=== PATIENT | female | born 1990 | race Caucasian/White ===

== ENCOUNTER 2016-09-28 10:46 | Inpatient (IN) | payer MEDICAID ==
[2016-09-28] MEDS ORDERED: BUTORPHANOL TARTRATE 2 MG/ML VIAL IV PRN (11:54)
[2016-09-28] MEDS ORDERED: LIDOCAINE HCL 50 ML VIAL PERI PRN (11:54)
[2016-09-28] MEDS ORDERED: RINGER'S SOLUTION,LACTATED 1,000 ML IV ONE (11:54)
[2016-09-28] MEDS ORDERED: OXYTOCIN/DEXTROSE 5%-WATER 30 UNITS/500 ML BAG IV ONE (11:54)
--- NOTE | 2016-09-28 16:28 | PN ---
Progess Note - Interim Narrative: 09/28/16 16:26 : /-2, AROM-cear FHTs: 140's, mod anibal, no decels, +accels [place]: q3min
[2016-09-28] MEDS ORDERED: NALOXONE HCL 1 MG/1 ML SYRG IV PRN ×2 (21:09→21:41)
[2016-09-28] MEDS ORDERED: ONDANSETRON HCL/PF 2 MG/ML VIAL IV PRN ×2 (21:09→21:41)
[2016-09-28] MEDS ORDERED: fentaNYL CITRATE/PF 50 MCG/ML AMPUL IT SCH (21:15)
[2016-09-28] MEDS ORDERED: BUPIVACAINE HCL/0.9 % NACL/PF 250 ML EP PRN (21:41)
--- NOTE | 2016-09-28 22:21 | OR ---
Anesthesia Procedure Note - Anesthesia Procedure Note Narrative: Vital Signs - Last Taken Temp 36.6 C 09/28/16 21:54 Pulse 86 09/28/16 21:54 Resp 18 09/28/16 21:54 BP 116/63 09/28/16 21:54 Pulse Ox 98 09/28/16 21:54 09/28/16 22:20 ANESTHESIA PROCEDURE NOTE Date of Procedure: 09/28/2016 Time of procedure: 2204. Performed by: Alan Heller CRNA Graphic Art Designer: None. Preprocedure diagnosis: Active labor. Post procedure diagnosis: Same. Procedure: Insertion of labor epidural. Indications: The patient is a 26 -year-old multigravida female in active labor requesting labor epidural for pain management. Findings: See below. Details of the procedure: The patient was placed in a sitting position. Back was prepped with DuraPrep. Patient was then draped in a sterile fashion. Lidocaine 1% was infiltrated to the skin and subcutaneous tissues at the level of the L3 4 interspace. The epidural space was identified using a 18-gauge Tuohy needle with [id number] technique. 20 mcg fentanyl was given intrathecally using a 27 ga. spinal needle. Epidural catheter was inserted without difficulty. Negative test dose was elicited using 5 mL of 1.5% preservative-free lidocaine plus epinephrine 1 200,000. The epidural catheter was then taped and secured in place. EBL: Minimal. Fluids: N/A. Specimen: N/A. Post procedure condition: The patient tolerated the procedure well. No complications were noted. Thank you for this consultation. Lawson CRNA
[2016-09-28] MEDS ORDERED: DEXTROSE 5%-LACTATED RINGERS 1,000 ML IV PRN (22:38)
[2016-09-29] MEDS ORDERED: SENNOSIDES 8.6 MG TABLET PO PRN (00:11)
[2016-09-29] MEDS ORDERED: OXYTOCIN/DEXTROSE 5%-WATER 30 UNITS/500 ML BAG IV ONE (00:11)
[2016-09-29] MEDS ORDERED: oxyCODONE HCL/ACETAMINOPHEN 1 TAB TABLET PO PRN (00:11)
[2016-09-29] MEDS ORDERED: BENZOCAINE/MENTHOL 81 SPRAY CAN TP PRN (00:11)
[2016-09-29] MEDS ORDERED: BISACODYL 10 MG SUPP.RECT RC PRN (00:11)
[2016-09-29] MEDS ORDERED: HYDROCORTISONE 30 APPL TUBE TP PRN (00:11)
--- NOTE | 2016-09-29 00:13 | OR ---
Operative Report - Dictated Report Narrative: Spontaneous Vaginal Delivery Viable female with APGARS of 9 and 9. Delivered at 2345. Presentation was ANN-MARIE. After delivery of the head a double nuchal cord was noted and reduced and posterior hand presented and was delivered prior to the right anterior shoulder. The baby delivered easily and placed on maternal abdomen and spontaneous cry was noted. Per patient request the cord was clamped after it stopped pulsating after approximately 2 minutes. Weight: 7 pounds 1.5 ounces or 3218 g Placenta was delivered spontaneously and intact. First-degree right vaginal laceration that was repaired with 3-0 Vicryl and a first-degree left vaginal that was hemostatic without repair. Estimated blood loss: 200 ml Mother and baby tolerated delivery well. History for Definition: * The number of deliveries resulting in a live the patient experienced prior to current hospitalization * The previous delivery of live twins or any live multiple gestation is considered one live event. *If primagravida or nulliparous is documented select zero for the number of previous live births. Live Events: 2
[2016-09-29] MEDS: IBUPROFEN 800 MG TABLET PO PRN ×3 (07:07→19:14)
[2016-09-29] MEDS: oxyCODONE HCL/ACETAMINOPHEN 1 TAB TABLET PO PRN ×4 (07:07→22:24)
[2016-09-29] MEDS: GLYCERIN/WITCH HAZEL LEAF 40 APPL BOX TP PRN (07:26)
[2016-09-29] MEDS: DOCUSATE SODIUM 100 MG CAPSULE PO SCH ×2 (10:20→20:54)
[2016-09-29 12:18] LABS: Hematocrit 27.8 % (37.0-47.0); Hemoglobin 8.8 gm/dL (12.5-16.0); Mean Cell Volume 80.3 fl (78-100); Mean Corpuscular Hemoglobin 25.4 pg (27-31); Mean Corpuscular Hgb Conc 31.7 g/dl (32-36); Mean Platelet Volume 10.2 fl (6.0-9.5); Neutrophil # 10.6 K/mm3 (1.3-6.0); Neutrophil % 79.4 % (42-75.0); Platelet Count 161 K/mm3 (150-450); Red Blood Count 3.46 M/mm3 (4.2-5.4); Red Cell Distribution Width 13.8 % (11.5-14.0); White Blood Count 13.3 K/mm3 (4.0-10.5)
--- NOTE | 2016-09-29 14:52 | PN ---
Subjective - Date and Time Seen Date: 09/29/16 Subjective Narrative: day 1, s/p . Was having some dizziness after taking percocet. Vaginal bleeding was normal, not excessive. CBC ordered and now showed anemia with hgb of 8.8. Previously was at 10.9 around 28 week. . Ambulating well. Objective - Vitals Vitals: Last Vital Signs Temp 36.5 C 09/29/16 07:36 Pulse 110 H 09/29/16 12:19 Resp 20 09/29/16 07:36 BP 102/60 09/29/16 07:36 Pulse Ox 99 09/29/16 07:36 - Abnormal Lab Findings Abnormal Lab Findings: Abnormal Lab Results 09/29/16 Range/Units 12:15 WBC 13.3 H (4.0-10.5) K/mm3 RBC 3.46 L (4.2-5.4) M/mm3 Hgb 8.8 L (12.5-16.0) gm/dL Hct 27.8 L (37.0-47.0) % MCH 25.4 L (27-31) pg MCHC 31.7 L (32-36) g/dl MPV 10.2 H (6.0-9.5) fl Immature Gran % (Auto) 1.10 H (0.001-0.429) % Immature Gran # (Auto) 0.15 H (0.000-0.0310) K/mm3 Neutrophils % 79.4 H (42-75.0) % Lymphocytes % 12.8 L (20-51) % Neutrophils # 10.6 H (1.3-6.0) K/mm3 - Exam Constitutional: Present: Alert, Oriented x3, Cooperative Respiratory: Present: no respiratory distress Cardiovascular/Chest: Present: normal peripheral pulses Abdomen: Present: soft, nontender, nondistended, other - fundus firm at umbilicus Extremity: Present: normal range of motion, no pedal edema, no calf tenderness Skin Exam: Present: normal color, warm/dry, no cyanosis Eye contact: Present: cooperative, good eye contact, normal speech Assessment/Plan Plan Narrative: A: day 1, s/p with anemia without excessive bleeding, stable. Plan: routine care. iron bid. ambulation encouraged. Fabian Emanuel MD
[2016-09-29] MEDS: FERROUS SULFATE 325 MG TABLET PO SCH (16:38)
[2016-09-30] MEDS: GLYCERIN/WITCH HAZEL LEAF 40 APPL BOX TP PRN (02:44)
[2016-09-30] MEDS: IBUPROFEN 800 MG TABLET PO PRN ×2 (02:44→08:55)
[2016-09-30] MEDS: oxyCODONE HCL/ACETAMINOPHEN 1 TAB TABLET PO PRN (06:56)
[2016-09-30 08:48] VITALS: BP 117/76
[2016-09-30] MEDS: DOCUSATE SODIUM 100 MG CAPSULE PO SCH (08:58)
--- NOTE | 2016-09-30 10:14 | PN ---
Subjective - Date and Time Seen Date: 09/30/16 Subjective Narrative: day 2, s/p doing well today. no dizziness or short of breath. . normal lochia. Objective - Vitals Vitals: Last Vital Signs Temp 36.7 C 09/30/16 08:36 Pulse 78 09/30/16 08:36 Resp 20 09/30/16 08:36 BP 117/76 09/30/16 08:36 Pulse Ox 99 09/30/16 08:36 - Abnormal Lab Findings Abnormal Lab Findings: Abnormal Lab Results 09/29/16 Range/Units 12:15 WBC 13.3 H (4.0-10.5) K/mm3 RBC 3.46 L (4.2-5.4) M/mm3 Hgb 8.8 L (12.5-16.0) gm/dL Hct 27.8 L (37.0-47.0) % MCH 25.4 L (27-31) pg MCHC 31.7 L (32-36) g/dl MPV 10.2 H (6.0-9.5) fl Immature Gran % (Auto) 1.10 H (0.001-0.429) % Immature Gran # (Auto) 0.15 H (0.000-0.0310) K/mm3 Neutrophils % 79.4 H (42-75.0) % Lymphocytes % 12.8 L (20-51) % Neutrophils # 10.6 H (1.3-6.0) K/mm3 - Exam Constitutional: Present: Alert, Oriented x3, Cooperative Respiratory: Present: no respiratory distress Abdomen: Present: soft, nontender, nondistended, other - fundus firm below umbilicus Extremity: Present: normal range of motion, no pedal edema, no calf tenderness Skin Exam: Present: normal color, warm/dry, no cyanosis Eye contact: Present: cooperative, good eye contact, normal speech Assessment/Plan Plan Narrative: A: day 2, s/p with anemia on iron, stable and well. Plan: will discharge home today. Fabian Emanuel MD
[2016-09-30] MEDS: FERROUS SULFATE 325 MG TABLET PO SCH (10:52)
== END 2016-09-30 12:30 | disposition home or self-care (01) | DRG 775 ==
LOC: OB 11:34
PROVIDERS: ADMIT Obstetrics & Gynecology Gynecologic Oncology; ATTEND Obstetrics & Gynecology Gynecologic Oncology
PROC: 10E0XZZ Delivery of Products of Conception, External Approach (ICD-10-PCS; principal; 2016-09-28)
PROC: 10907ZC Drainage of Amniotic Fluid, Therapeutic from Products of Conception, Via Natural or Artificial Opening (ICD-10-PCS; 2016-09-28)
PROC: 3E033VJ Introduction of Other Hormone into Peripheral Vein, Percutaneous Approach (ICD-10-PCS; 2016-09-28)
PROC: 4A1HXCZ Monitoring of Products of Conception, Cardiac Rate, External Approach (ICD-10-PCS; 2016-09-28)
PROC: 0HQ9XZZ Repair Perineum Skin, External Approach (ICD-10-PCS; 2016-09-28)
PROC: 00HU33Z Insertion of Infusion Device into Spinal Canal, Percutaneous Approach (ICD-10-PCS; 2016-09-28)
DX: O69.81X0 Labor and delivery complicated by cord around neck, without compression, not applicable or unspecified (principal); O70.0 First degree perineal laceration during delivery; D64.9 Anemia, unspecified; Z3A.39 39 weeks gestation of pregnancy; Z37.0 Single live birth